=== PATIENT | male | born 2000 | race Caucasian/White ===

== ENCOUNTER 2023-05-10 14:13 | Outpatient (CLI) | payer OTHER, SELFPAY ==
--- NOTE | 2023-05-10 | DI.RAD_ITS ---
Exam(s) XR THUMB RT EXAM: XR THUMB RT CLINICAL HISTORY: RT THUMB PAIN, M79.644. TECHNIQUE: 2D digital imaging was performed of the right finger. Three views were obtained. PA/AP, oblique, and lateral views were obtained. COMPARISON: No exams were available for comparison FINDINGS: BONES: There is a nondisplaced fracture through the ulnar aspect of the base of the proximal phalanx of the thumb. No bony destructive lesion is seen. JOINTS: No dislocation present. SOFT TISSUE: Normal. IMPRESSION: Nondisplaced fracture through the base of the proximal phalanx of the thumb. DATA REPOSITORY: RADIATION DOSE DELIVERED:
== END 2023-05-10 14:33 ==
PROVIDERS: Visit Provider Nurse Practitioner Family
DX: S62.514A Nondisplaced fracture of proximal phalanx of right thumb, initial encounter for closed fracture (principal); M79.644 Pain in right finger(s); X58.XXXA Exposure to other specified factors, initial encounter
CPT/HCPCS: 73140

== ENCOUNTER 2023-05-18 10:52 | Outpatient (CLI) | payer OTHER, SELFPAY ==
--- NOTE | 2023-05-18 10:30 | DI.RAD_ITS ---
Exam(s) XR THUMB RT EXAM: XR THUMB RT INDICATION: THUMB PAIN. COMPARISON: CR XR THUMB RT from 05/10/2023 TECHNIQUE: 2D digital imaging was performed. Two views. FINDINGS: A fracture is again noted at the ulnar base of the proximal phalanx of thumb. The fragment is mildly displaced which appears to have increased when compared to the previous exam versus differences in p rojection. DATA REPOSITORY: RADIATION DOSE DELIVERED:
== END 2023-05-18 10:53 | disposition home or self-care (01) ==
LOC: DIORS 10:52
PROVIDERS: Visit Provider Student in an Organized Health Care Education/Training Program
DX: S62.511D Displaced fracture of proximal phalanx of right thumb, subsequent encounter for fracture with routine healing (principal); X58.XXXD Exposure to other specified factors, subsequent encounter; M79.646 Pain in unspecified finger(s)
CPT/HCPCS: 73140